=== PATIENT | female | born 1950 | race Caucasian/White ===

== ENCOUNTER 2017-07-05 21:34 | Observation (INO) | payer MEDICARE, MEDICAID ==
[~2017-07-05 21:34] MED LIST: ALBU6.7H INH; BACT800T5 PO; MEDR4PAK PO; VENTAER INH; ZITHTAB PO
[2017-07-06] MEDS ORDERED: IOHEXOL 350 MG/ML 100 ML BTL (for Cath Lab) OTHER ONE (01:12)
[2017-07-06 04:35] VITALS: BP 126/77; PULSE 57; RESP 18; TEMP 98.1; O2SAT 97
[2017-07-06 06:50] VITALS: PULSE 56
[2017-07-06] MEDS ORDERED: ACETAMINOPHEN 500 MG CPLT PO PRN (07:30)
[2017-07-06] MEDS ORDERED: SODIUM CHLORIDE 0.9% FLUSH 10 ML FLUSH IV FLUSH PRN (07:30)
[2017-07-06] MEDS ORDERED: ONDANSETRON HCL 4 MG/2 ML VIAL IV PUSH PRN (07:30)
[2017-07-06] MEDS ORDERED: NITROGLYCERIN 0.4 MG SL 25 TABS/BTL SL PRN (07:30)
[2017-07-06 07:45] VITALS: BP 125/72; PULSE 55; RESP 18; TEMP 98; O2SAT 97
--- NOTE | 2017-07-06 07:45 | HHI.HP ---
HPI Primary Care Physician Unknown Chief Complaint Chest pain History of Present Illness 66 year old female with history of COPD and current smoker presents to ER for further evaluation of chest pain. Onset last evening 7pm. Nonexertional. Reports quick onset of diaphoresis, nausea, substernal chest pain, and x3 episodes of nonbloody emesis. Characterized as waxing and waning sharp pain. No radiation of pain. Duration 1.5-2 hours. No known precipitating or relieving factors. She notified her daughter, daughter took mother's blood pressure, and . Blood pressure reportedly high, therefore took clonidine pill prescribed to her daughter. Continued to experience chest discomfort, therefore called her son to assist her to ER. Currently chest pain free. No recent illness. Review of Systems General: No fatigue,weakness, fever, chills, recent illness, or change in appetite. Has been her general health. HEENT: No RADFORD, no vision changes, no nasal congestion or drainage, no dysphasia CV: As stated above. No current chest pain or pressure. No history of coronary artery disease. No palpitations. RESP: No SOB, cough, wheeze, or recent URI. Known COPD, continues to smoke. GI: No nausea, vomiting, bowel changes, diarrhea, constipation, pain, distention , melena, blood in the stool. No change in appetite, no unintentional weight gain or weight loss : No dysuria, urgency, frequency EXT: No lower leg edema, no paraesthesias MS: No discomfort or change in ROM NEURO: No change in memory, dizziness, difficulty with balance, LOC, motor/ sensory deficits PSYCH: No anxiety, depression, suicidal ideation SKIN: No rashes, no concerning lesions Past Family Social History Allergies: Coded Allergies: No Known Allergies (Verified Allergy, Unknown, 07/06/17) Past Medical History COPD Reported Medications Reported Meds & Active Scripts Active Reported Proventil Hfa 6.7 GM Inh (Albuterol Sulfate) 90 Mcg/Act Aer 2 Puff INH Q4-6H PRN Active Ordered Medications Current Medications Medications (Trade) Dose Ordered Sig/Jade Route Start Time Stop Time Status Last Admin (NS Flush) 2 ml UNSCH PRN IV FLUSH 07/06/17 07:30 (NS Flush) 2 ml BID IV FLUSH 07/06/17 09:00 (Tylenol) 500 mg Q4H PRN PO 07/06/17 07:30 (Zofran Inj) 4 mg Q6H PRN IV PUSH 07/06/17 07:30 (Nitrostat Sl) 0.4 mg Q5M PRN SL 07/06/17 07:30 (Aspirin) 325 mg DAILY PO 07/06/17 09:00 Family History Noncontributory for early onset cardiovascular disease. Social History No known CAD, hypertension, hyperlipidemia, or diabetes. Current smoker. Endorses sedentary lifestyle. 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 Past cardiac testing None Physical Exam Vital Signs Vital Signs Date Time Temp Pulse Resp B/P (MAP) Pulse Ox O2 Delivery O2 Flow Rate FiO2 07/06/17 06:50 56 07/06/17 04:35 98.1 57 18 126/77 (93) 97 Physical Exam GENERAL: Alert WN, WD, NAD, pleasant, obese female who appears older than stated age. HEAD: NC, AT NECK: Supple, no masses, trachea midline CV: RRR, without murmur, rub, gallop, no JVD, S1-S2 no S3-S4. Chest wall nontender with palpation. RESP: Clear lungs throughout bilateral, no crackles, wheeze, rhonchi, symmetrical chest rise, nonlabored, able to speak in full sentences ABD: Soft, NT, ND, no masses, positive bowel tones, round, obese BACK: No CVAT, no scoliosis EXT: Pulses +24, trace bilateral pedal edema MS: Normal tone 4 extremities, nontender, no obvious deformities, full range of motion NEURO: CN II through CN XII grossly intact, motor strength 5/5 PSYCH: A+O 3, pleasant affect, appropriate speech, appropriate mood and affect , insight and judgment SKIN: Normal turgor, normal texture, no lesions, no rashes Laboratory CBC unremarkable, CMP unremarkable, troponin negative, potassium 3.4 Imaging Chest x-ray no acute cardiopulmonary disease. Course EKG First and second EKG normal sinus rhythm, with incomplete right bundle branch block. Third EKG limb lead reversal. Caprini VTE Risk Assessment Caprini VTE Risk Assessment: Mod/High Risk (score >= 2) Caprini Risk Assessment Model Point Value = 1 Point Value = 2 Point Value = 3 Point Value = 5 Age 41-60 Minor surgery BMI > 25 kg/m2 Swollen legs Varicose veins or History of unexplained or recurrent spontaneous Oral contraceptives or hormone replacement Sepsis (< 1 month) Serious lung disease, including pneumonia (< 1 month) Abnormal pulmonary function Acute myocardial infarction Congestive heart failure (< 1 month) History of inflammatory bowel disease Medical patient at bed rest Age 61-74 Arthroscopic surgery Major open surgery (> 45 min) Laparoscopic surgery (> 45 min) Malignancy Confined to bed (> 72 hours) Immobilizing plaster cast Central venous access Age >= 75 History of VTE Family history of VTE Factor V Leiden Prothrombin [id number] Lupus anticoagulant Anticardiolipin antibodies Elevated serum homocysteine Heparin-induced thrombocytopenia Other congenital or acquired thrombophilia Stroke (< 1 month) Elective arthroplasty Hip, pelvis, or leg fracture Acute spinal cord injury (< 1 month) Prophylaxis Regimen Total Risk Factor Score Risk Level Prophylaxis Regimen 0-1 Low Early ambulation 2 Moderate Order ONE of the following: *Sequential Compression Device (SCD) *Heparin 5000 units SQ BID 3-4 Higher Order ONE of the following medications: *Heparin 5000 units SQ TID *Enoxaparin/Lovenox 40 mg SQ daily (WT < 150 kg, CrCl > 30 mL/min) *Enoxaparin/Lovenox 30 mg SQ daily (WT < 150 kg, CrCl > 10-29 mL/min) *Enoxaparin/Lovenox 30 mg SQ BID (WT < 150 kg, CrCl > 30 mL/min) AND/OR *Sequential Compression Device (SCD) 5 or more Highest Order ONE of the following medications: *Heparin 5000 units SQ TID (Preferred with Epidurals) *Enoxaparin/Lovenox 40 mg SQ daily (WT < 150 kg, CrCl > 30 mL/min) *Enoxaparin/Lovenox 30 mg SQ daily (WT < 150 kg, CrCl > 10-29 mL/min) *Enoxaparin/Lovenox 30 mg SQ BID (WT < 150 kg, CrCl > 30 mL/min) AND *Sequential Compression Device (SCD) Assessment and Plan Assessment and Plan #1 Chest pain-admitted to chest pain center. Ruled out with 3 sets of EKGs, cardiac enzymes, and monitored overnight. Repeat 3rd EKG due to limb lead reversal. Seen and evaluated by Dr. Rafael Malone. Proceed with chemical stress test this a.m. If unremarkable, discharged home with follow-up with PCP. Patient agreeable to plan of care. #2 Tobacco use-strongly encouraged and stressed the importance of tobacco cessation. Instructed to quit smoking, especially due to her diagnosis of COPD. Informed of free smoking cessation classes and possible medications that may assist her with her efforts. 1300 Abnormal lexiscan, discussed with Dr. Malone. Admit to casework manager with possible hospitalist consult. Discussed with patient. Ariana Braun Jul 06, 2017 07:45
--- NOTE | 2017-07-06 08:53 | HHI.HP ---
HPI Primary Care Physician Unknown Past Family Social History Allergies: Coded Allergies: No Known Allergies (Verified Allergy, Unknown, 07/06/17) Reported Medications Reported Meds & Active Scripts Active Bactrim DS (Sulfamethoxazole-Trimethoprim) 800-160 Mg Tab 1 Tab PO BID Zithromax Z-Trell (Azithromycin) 250 Mg Dspk 250 Mg PO DIRECTED 500 MG (2 tabs) day 1, then 1 tab days 2-5. Ventolin Hfa 18 GM Inh (Albuterol Sulfate) 90 Mcg/Act Aer 2 Puff INH Q6H PRN Medrol Dosepak (Methylprednisolone) 4 Mg Dspk 4 Mg PO DIRECTED Per Pharmacist direction Reported Proventil Hfa 6.7 GM Inh (Albuterol Sulfate) 90 Mcg/Act Aer 2 Puff INH Q4-6H PRN Active Ordered Medications Current Medications Medications (Trade) Dose Ordered Sig/Jade Route Start Time Stop Time Status Last Admin (NS Flush) 2 ml UNSCH PRN IV FLUSH 07/06/17 07:30 (NS Flush) 2 ml BID IV FLUSH 07/06/17 09:00 07/06/17 08:44 (Tylenol) 500 mg Q4H PRN PO 07/06/17 07:30 (Zofran Inj) 4 mg Q6H PRN IV PUSH 07/06/17 07:30 (Nitrostat Sl) 0.4 mg Q5M PRN SL 07/06/17 07:30 (Aspirin) 325 mg DAILY PO 07/06/17 09:00 07/06/17 08:43 Physical Exam Vital Signs Vital Signs Date Time Temp Pulse Resp B/P (MAP) Pulse Ox O2 Delivery O2 Flow Rate FiO2 07/06/17 07:45 98.0 55 18 125/72 (89) 97 07/06/17 06:50 56 07/06/17 04:35 98.1 57 18 126/77 (93) 97 Laboratory Laboratory Tests Test 07/06/17 04:10 Caprini VTE Risk Assessment Caprini Risk Assessment Model Point Value = 1 Point Value = 2 Point Value = 3 Point Value = 5 Age 41-60 Minor surgery BMI > 25 kg/m2 Swollen legs Varicose veins or History of unexplained or recurrent spontaneous Oral contraceptives or hormone replacement Sepsis (< 1 month) Serious lung disease, including pneumonia (< 1 month) Abnormal pulmonary function Acute myocardial infarction Congestive heart failure (< 1 month) History of inflammatory bowel disease Medical patient at bed rest Age 61-74 Arthroscopic surgery Major open surgery (> 45 min) Laparoscopic surgery (> 45 min) Malignancy Confined to bed (> 72 hours) Immobilizing plaster cast Central venous access Age >= 75 History of VTE Family history of VTE Factor V Leiden Prothrombin [id number] Lupus anticoagulant Anticardiolipin antibodies Elevated serum homocysteine Heparin-induced thrombocytopenia Other congenital or acquired thrombophilia Stroke (< 1 month) Elective arthroplasty Hip, pelvis, or leg fracture Acute spinal cord injury (< 1 month) Prophylaxis Regimen Total Risk Factor Score Risk Level Prophylaxis Regimen 0-1 Low Early ambulation 2 Moderate Order ONE of the following: *Sequential Compression Device (SCD) *Heparin 5000 units SQ BID 3-4 Higher Order ONE of the following medications: *Heparin 5000 units SQ TID *Enoxaparin/Lovenox 40 mg SQ daily (WT < 150 kg, CrCl > 30 mL/min) *Enoxaparin/Lovenox 30 mg SQ daily (WT < 150 kg, CrCl > 10-29 mL/min) *Enoxaparin/Lovenox 30 mg SQ BID (WT < 150 kg, CrCl > 30 mL/min) AND/OR *Sequential Compression Device (SCD) 5 or more Highest Order ONE of the following medications: *Heparin 5000 units SQ TID (Preferred with Epidurals) *Enoxaparin/Lovenox 40 mg SQ daily (WT < 150 kg, CrCl > 30 mL/min) *Enoxaparin/Lovenox 30 mg SQ daily (WT < 150 kg, CrCl > 10-29 mL/min) *Enoxaparin/Lovenox 30 mg SQ BID (WT < 150 kg, CrCl > 30 mL/min) AND *Sequential Compression Device (SCD) Ariana Braun Jul 06, 2017 08:53
[2017-07-06] MEDS ORDERED: SODIUM CHLORIDE 0.9% FLUSH 10 ML FLUSH IV FLUSH SCH (09:00)
[2017-07-06] MEDS ORDERED: ASPIRIN 325 MG TAB PO SCH (09:00)
[2017-07-06] MEDS ORDERED: POTASSIUM CHLORIDE 20 MEQ CONTROLLED RELEASE TAB PO ONE (09:15)
[2017-07-06] MEDS ORDERED: RESP: ALBUTEROL 2.5 MG/3 ML NEB (PRN) NEB (09:15)
[2017-07-06] MEDS ORDERED: REGADENOSON INJ 0.4 MG/5 ML SYR ONE (11:09)
--- NOTE | 2017-07-06 12:25 | RADRPT ---
EXAM DATE/TIME: 07/06/2017 10:44 [place] COMPARISON: No previous studies available for comparison. INDICATIONS : Substernal chest pain with nausea, vomiting, diaphoresis and dyspnea. Angina. DOSE: 25.4 mCi Tc99m Myoview at stress. 8.5 mCi Tc99m Myoview at rest. 0.4 mg Lexiscan STRESS SYMPTOMS: Dyspnea and chest tightness. EJECTION FRACTION: 67% MEDICAL HISTORY : Hypertension. Chronic obstructive pulmonary disease. SURGICAL HISTORY : Tonsillectomy. Tubal ligation. ENCOUNTER: Initial ACUITY: 1 day PAIN SCALE: 5/10 LOCATION: Substernal chest TECHNIQUE: The patient underwent pharmacologic stress with infusion of prescribed dose. Continuous ECG tracing was monitored during stress. Gated SPECT imaging was performed after stress and conventional SPECT i maging was performed at rest. The examination was performed on a SPECT/CT scanner, both attenuation and non-corrected datasets were reviewed. FINDINGS: DISTRIBUTION: The maximum perfused segment at stress is in the inferior wall. PERFUSION STUDY: There is mild decreased perfusion on the stress images seen at the mid upper septal region compared t o the rest images GATED STUDY: There is intact wall motion and thickening without hypokinetic or dyskinetic segments. CONCLUSION: Mild area of suspected ischemia in the upper mid septum. RISK CATEGORY: Intermediate (1-3% Annual Mortality Rate) Gerard Chacon MD on July 06, 2017 at 12:18 Board Certified Radiologist. This report was verified electronically.
--- NOTE | 2017-07-06 12:51 | EKG ---
Date Performed: 07/06/2017 Time Performed: 05:50:25 PTAGE: 66 years EKG: LIMB LEAD REVERSAL RIGHT BUNDLE BRANCH BLOCK ABNORMAL ECG PREVIOUS TRACING : 07/06/2017 00.24 DOCTOR: Rafael Malone Interpretating Date/Time 07/06/2017 12:49:44
--- NOTE | 2017-07-06 12:56 | EKG ---
Date Performed: 07/06/2017 Time Performed: 09:21:17 PTAGE: 66 years EKG: SINUS BRADYCARDIA RIGHT BUNDLE BRANCH BLOCK ABNORMAL ECG PREVIOUS TRACING : 07/06/2017 05.50 DOCTOR: Rafael Malone Interpretating Date/Time 07/06/2017 12:53:25
--- NOTE | 2017-07-06 12:58 | TR ---
Date Performed: 07/06/2017 Time Performed: 11:13:15 DOCTOR: Rafael Malone DRUG LIST: CLINICAL HISTORY: REASON FOR TEST: CHEST PAIN REASON FOR ENDING: OBSERVATION: CONCLUSION: Lexiscan stress test was performed under standard four minute protocol. Radionuclid e was injected one minute prior to ending the test. No electrocardiographic abormalities were present to suggest ischemia. Nuclear imaging and interpretation are pending. COMMENTS:
[2017-07-06] MEDS ORDERED: MIDAZOLAM HCL 2 MG/2 ML VIAL ONE (14:15)
[2017-07-06] MEDS ORDERED: HEPARIN-NS/PF INJ 1,000 ML ONE (14:15)
--- NOTE | 2017-07-06 15:16 | CATHPROC ---
[facility] HIS Report Study Information Study Number Admission Scheduled Start Study Start [id number] Jul 06 2017 1:11AM 07/06/2017 Jul 06 2017 2:18PM [facility] Cardiac Catheterization Admit Source Facility Department Emergency department [facility] - Radio Frequency Engineer Physician and Clinical Staff Initial David Dailey Pest Control Service Sales Agent Jace Guevara RN Recorder Fariba Norris,RT(R) (BS) Scrub Nelsy KhanRT(R) Procedures Performed Procedure Location (Site) Vessel Name Angiogram LV LV Ventricle Coronary Angiograms LCA Left Coronary Coronary Angiograms RCA Right Coronary L Heart Cath Equipment Time Route Rider Supervisor Description Size Mfg Part Number Used/Scraped TRANSDUCER, TRUWAVE [id number] 14:49 [employer] * Used W/STOCKCOCK *[id number] 15:09 [employer] MEDICAL VASCADE, FR5 CLOSURE SYSTEM FR 5 Used *[id number] *[id number] [id number] *[id number] *[id number] 14:49 [employer] PACK, CCL CUSTOM * Used *[id number] 14:49 [employer] PACER PEN, SKIN DUAL W/ RULER * Used *[id number] 14:49 [employer] WIRE, 3MMJ .035 180CM 180CM Used *[id number] PROBE COVER, STERILE [id number] 14:49 [employer] * Used ULTRASOUND W/ GEL *[id number] 14:49 NAMIC MANIFOLD, 4 PORT * Used *[id number] 14:49 NAMIC TUBING, HIGH PRESSURE 48" 48" Used *[id number] 14:49 [employer]COMED OMNIPAQUE, 350 MG, 150ML 150ML [id number] Used 14:57 [employer]ED OMNIPAQUE, 350 MG, 50ML 50ML [id number] Used [id number] 14:49 P[employer] MEDICAL BLANKET,WARM AIR CCL * Used *[id number] 14:49 TERUMO MEDICAL SHEATH, FR5 TERUMO (10CM) FR 5 Used *[id number] History: Allergies Allergy Reaction No Known Allergies History: Risk Factors Family History of Hypertension Dyslipidemia Previous [place] Previous Heart Failure Premature CAD No No No No No Prior Valve Prior PCI Prior CABG Surgery No No No Cerebrovascular Peripheral Artery Chronic Lung On Dialysis Diabetes Disease Disease Disease No No No Yes No History: Symptoms/Diagnosis Selection Items Chest pain History: Stress Tests Stress or Imaging Studies Performed Yes Standard Exercise Stress Test No Stress Echo No Stress Test SPECT Stress Test SPECT Result Stress Test SPECT Ischemia Risk/Extent Yes Positive Intermediate Stress Test CMR No Cardiac CTA Coronary Calcium Score No No History: Other Current Smoker Method Packs a Day Years Used Pack Years Yes Cigarettes 2 44 88 Labs Hgb (g/dl) Hct (%) WBC (l/cumm) Platelets (thousands) 11.60-17.00 35.00-51.00 4.00-11.00 150.00-450.00 12.9 37.4 7.3 218 Glucose (mg/dl) BUN (mg/dl) Creatinine (mg/dl) BUN:Creatinine (1:x) 74.00-106.00 7.00-18.00 0.50-1.30 10.00-20.00 91 12 0.9 13.3 Na (meq/l) K (meq/l) 136.00-145.00 3.50-5.10 145 3.5 INR (PTT:PT) 0.90-1.10 0.9 Troponin I (ng/ml) CPK-MB (ng/ML) 0.02-0.05 0.50-3.60 0.03 Not Drawn Medication Medication Total Dose (Bolus/Oral) Medication Total Dosage/Unit 1% XYLOCAINE 20 mL FENTANYL 50 mcg VERSED 2 mg Medications (Bolus/Oral) Medication Time Given Dosage/Unit Administered By Reason VERSED 07/06/2017 2:49:42 PM 2 mg Jace Guevara 2 mg VERSED given in lab by Jace Guevara RN in Right Antecubital via Peripheral IV. FENTANYL 07/06/2017 2:50:16 PM 50 mcg Jace Guevara 50 mcg FENTANYL given in lab by Jace Guevara RN in Right Antecubital via Peripheral IV. 1% XYLOCAINE 07/06/2017 2:52:16 PM 20 mL David Thorpe 20 mL 1% XYLOCAINE given in lab by David Thorpe in Right Groin via Subcutaneous. Medication (Drip) Medication Time Given Dosage/Unit Concentration/Unit Diluent (ml) Solution IV Solutions 07/06/2017 2:18:43 PM 50 mL (IV) 500 NaCl .9 IV Solutions given in lab by Jace Guevara RN in Right Antecubital via Peripheral IV. Pump/Drip Flow using NaCl .9. Initial Case Assessment Cardiovascular HR Rhythm NIBP Chest Pain 53 reg 169/65 0 Edema Present Skin color Skin None Normal Warm Dry Circulatory - Right Pulses Dorsalis Pedis Femoral 1 1 Scale (0,1,2,3,4,d) Circulatory - Left Pulses Dorsalis Pedis Femoral 2 1 Scale (0,1,2,3,4,d) Circulatory - Lower Extremities Color Lower Right Color Lower Left Normal Normal Neurological State Oriented to time-place- Alert Moves all extremities person Respiration - General Respiration Rate SpO2 (%) (B/min) 8 99 Chronological Log Time Study Chronological Log 14:18:17 Patient arrived via Bed. 14:18:23 Patient Name, D.O.B, / Armband Verified By R.N. 14:18:29 Consent signed by the physician and the patient and verified by the Radio Frequency Engineer staff. 14:18:30 Pre-op and post- op instructions given; patient acknowledges understanding of instructions. 14:18:30 Verbal Stimulation=2 Physical Stimulation=2 Airway=2 Respiration=2 TOTAL=8. (0=absent, 1=li mited, 2=present) 14:18:33 Presedation assessment performed by Radio Frequency Engineer RN. 14:18:36 Patient has been NPO for More than 6Hrs. 14:18:38 Skin Breakdown none per pt 14:18:39 Patient Warmer Placed on the Table. 14:18:41 Blade Prominences Protected 14:18:42 A # 18 IV was noted in the Antecubital (right). Grade = 0 14:18:43 IV Solutions given in lab by Jace Guevara RN in Right Antecubital via Peripheral IV. Pump /Drip Flow using NaCl .9. 14:18:44 History and physical on the chart or being dictated. Assessment: Initial Case, HR=53 BPM, Rhythm=reg, NRPD=377/65 mmhg, Chest Pain=0, Edema=None, Co raisa=Normal, Skin = Warm, Dry Right Pulses: Cedric Ped=1, Femoral=1 Left Pulses: Cedric Ped=2, Femoral=1 14:18:47 Lower Right Extremities: Color=Normal Lower Left Extremities: Color=Normal Neurological: State=Alert, Ox3, DENNY Respiration: Resp=8 B/min, SpO2=99 % 14:28:34 Bilateral groins prepped with 2% chlorhexidine, and draped after a 3 minute waiting time. Vitals capture started with the following parameters, Patient=Adult, Interval=5 min, Initial Pr uluwdj=629 mmHg, 14:31:29 Deflation Rate=5 mmHg, Cuff placed on Left Arm 14:32:28 HR=56 bpm, XMJO=186/65 mmhg, SpO2=98.0 %, Resp=15 B/min, Pain=0, Maria Elena=10, Vera=2 14:34:28 Pressure channel 1 zeroed. 14:35:38 MD paged 14:36:35 Reference ECG taken 14:37:12 HR=56 bpm, KLNW=527/86 mmhg, SpO2=99.0 %, Resp=8 B/min, Pain=0, Maria Elena=10, Vera=2 14:42:11 HR=59 bpm, WYBS=002/85 mmhg, SpO2=98.0 %, Resp=13 B/min, Pain=0, Maria Elena=10, Vera=2 14:46:02 MD arrived 14:47:10 HR=63 bpm, ORZH=632/93 mmhg, SfH6=965.0 %, Resp=21 B/min, Pain=0, Maria Elena=10, Vera=2 14:49:42 2 mg VERSED given in lab by Jace Guevara RN in Right Antecubital via Peripheral IV. 14:50:16 50 mcg FENTANYL given in lab by Jace Guevara RN in Right Antecubital via Peripheral IV. Time Out. Correct patient, correct procedure, correct physician, power injector loaded with con trast with surgical team 14:52:05 present. Time Out Concurred by MD and individual staff in procedure. 14:52:12 HR=58 bpm, EOSV=200/77 mmhg, SpO2=97.0 %, Resp=0 B/min, Pain=0, Maria Elena=10, Vera=2 14:52:15 Case Start 14:52:16 20 mL 1% XYLOCAINE given in lab by David Thorpe in Right Groin via Subcutaneous. 14:53:58 Access site was Right Femoral Artery using ultrasound 14:54:06 A SHEATH, FR5 TERUMO (10CM) FR 5 was advanced into the Fem Art (right) using the Percutaneo us technique. A PIGTAIL ANG. INFINITI CATHETER FR 5 was advanced over a wire. OMNIPAQUE, 350 MG, 150ML 150ML was used 14:54:53 for injections. Recorded Pressure: LV, HR=68, Condition=Condition 1 14:56:10 (Left Ventricle) LV 144/8/15 14:56:26 The LV was injected at 10 cc/sec for a total of 30. OMNIPAQUE, 350 MG, 50ML 50ML used. Recorded Pressure: LV, Ao, HR=63, Condition=Condition 1 14:57:28 (Left Ventricle) LV 110/5/12, (Aorta) Ao 117/60/85 14:57:43 HR=59 bpm, ZCDB=894/73 mmhg, SpO2=98.0 %, Resp=11 B/min, Pain=0, Maria Elena=10, Vera=2 14:57:48 Catheter was removed A JL 4.0 INFINITI CATHETER FR 5 was advanced over a wire. OMNIPAQUE, 350 MG, 150ML 150ML was u sed for 14:58:04 injections. Recorded Pressure: Ao, HR=55, Condition=Condition 1 14:59:00 (Aorta) Ao 141/74/101 14:59:23 The LCA was injected and visualized at various angles. OMNIPAQUE, 350 MG, 150ML 150ML use d. 15:00:54 Catheter was removed A AR MOD INFINITI CATHETER FR 5 was advanced over a wire. OMNIPAQUE, 350 MG, 150ML 150ML was u sed for 15:01:10 injections. 15:02:08 HR=66 bpm, QDGY=726/71 mmhg, SpO2=99.0 %, Resp=23 B/min, Pain=0, Maria Elena=10, Vera=2 15:02:19 The RCA was injected and visualized at various angles. OMNIPAQUE, 350 MG, 150ML 150ML use d. 15:02:40 Catheter was removed 15:03:47 An injection in the Fem Art (right) was made through the SHEATH, FR5 TERUMO (10CM) FR 5. 15:07:13 HR=63 bpm, DQQC=942/75 mmhg, SpO2=99.0 %, Resp=25 B/min, Pain=0, Maria Elena=10, Vera=2 15:08:35 VASCADE, FR5 CLOSURE SYSTEM FR 5 placement in the Fem Art (right) 15:09:56 Case End 15:10:18 Catheter(s) removed without difficulty 15:10:24 No case complications noted. 15:10:27 Bedside Report will be given. 15:10:30 A Left Heart Cath was performed. 15:12:12 HR=58 bpm, OCAJ=942/79 mmhg, YgD7=062.0 %, Resp=11 B/min, Pain=0, Maria Elena=10, Vera=2 15:14:24 Sterile dressing applied to site 15:14:37 Implantable Device card placed in patient's chart. 15:15:14 Vitals capture stopped. 15:18:[facility] - Cont[facility] Media Used In Study Contrast Total Opened (mL) Total Used (mL) Total Wasted (mL) Omnipaque 90 90 0 End Study - Maximum Contrast Load Max Contrast Load (mL) 515.7 End Study - Radiation Exposure Fluoro Time (minutes) 1.1 End Study - Sheaths Sheaths Pulled By Sheath Hold Time (min) Nelsy Khan End Study - Patient Disposition Complications Transferred To Interventional Outcome No Radio Frequency Engineer Holding No attempt made
--- NOTE | 2017-07-06 15:21 | HHI.DCPOC ---
Discharge Care Plan Goals to Promote Your Health * To prevent worsening of your condition and complications * To maintain your health at the optimal level Directions to Meet Your Goals Take your medications as prescribed Follow your dietary instruction Follow activity as directed Keep your appointments as scheduled Take your immunizations and boosters as scheduled If your symptoms worsen call your PCP, if no PCP go to Urgent Care Center or Emergency Room Smoking is Dangerous to Your Health. Avoid second hand smoke Call the 24-hour hour crisis hotline for domestic abuse at Jaky Laird MD Jul 06, 2017 15:21
--- NOTE | 2017-07-06 16:30 | MB ---
cc: LOVE MOREL DATE OF CONSULTATION 07/06/2017 HISTORY OF PRESENT ILLNESS This is a 66-year-old white female with a history of COPD and smoking who presented with substernal chest discomfort at rest, nausea, vomiting and diaphoresis. She was severely hypertensive. She was brought to the emergency room. She underwent an adenosine myocardial perfusion study which showed septal ischemia and was an intermediate risk study. PAST MEDICAL HISTORY COPD. ALLERGIES None. MEDICATIONS 1. Methylprednisolone. 2. Albuterol. 3. Sulfamethoxazole. 4. Trimethoprim. 5. Azithromycin. SOCIAL HISTORY The patient is a smoker. She does not drink alcohol. FAMILY HISTORY Positive for heart disease in her father. REVIEW OF SYSTEMS Otherwise negative. PHYSICAL EXAMINATION VITAL SIGNS: Blood pressure 125/72, pulse 55 and regular. HEENT: Negative. 2+ carotid upstrokes. No bruits. LUNGS: A few rhonchi. HEART: Regular with no murmur, gallop or rub. ABDOMEN: Soft. No bruit. EXTREMITIES: Trace edema. 1-2+ distal pulses. NEUROLOGIC: Grossly nonfocal. EKG EKG was reviewed and showed sinus rhythm and right bundle branch block. LABORATORY Troponin 0.03. DIAGNOSIS 1. Unstable angina. 2. Intermediate risk myocardial perfusion study. 3. COPD. 4. Right bundle branch block. DISPOSITION Ms. Colin will undergo cardiac catheterization and coronary intervention if necessary. The patient understands the risks and benefits, and wishes to proceed. She was strongly encouraged to quit smoking. I recommend to continue aggressive modification of her cardiac risk factors. MD ELIAS Fields/ABHILASH /3:37 PM /4:19 PM GERBER
--- NOTE | 2017-07-07 20:54 | MA ---
cc: LOVE MOREL MD DATE: 07/06/2017 INDICATIONS: Unstable angina. Class III angina, intermediate probability nuclear myocardial perfusion study. PROCEDURE PERFORMED 1. Retrograde left heart catheterization with left ventriculography and selective coronary angiography. 2. Moderate sedation. ACCESS SITE The right femoral artery, using ultrasound guidance. EQUIPMENT USED 5 [place] pigtail catheter, 5 [place] JL4 and AR modified coronary artery catheters. MEDICATIONS Versed IV, Fentanyl IV. CONTRAST Omnipaque 90 cc. COMPLICATIONS None. BLOOD LOSS: Less than 10 cc METHOD OF HEMOSTASIS Vascade closure. RESULTS HEMODYNAMICS Heart rate 61 beats per minute. Left ventricular end-diastolic pressure 5 mmHg. Left ventricle 120/5. Aorta 120/74/101. LEFT VENTRICULOGRAPHY Left ventricular ejection fraction 55%. Wall motion normal. No mitral regurgitation. CORONARY ANGIOGRAPHY The main coronary artery is patent. Left anterior descending artery patent. D1 patent. D2 patent. The left circumflex artery is patent, OM-1 patent. The right coronary artery is a dominant vessel which is patent. PDA is patent. PLV is patent. DIAGNOSIS 1. Patent coronary arteries. 2. Preserved left ventricular systolic function. DISPOSITION Ms. Colin can be reassured about her cardiac status. Her study showed patent coronary arteries and preserved left ventricular systolic function. Her nuclear myocardial perfusion study was falsely abnormal. She can be discharged home. She will follow up with her primary physician after discharge. MD ELIAS Fields/JACKELINE /3:07 PM /7:00 PM GERBER
== END 2017-07-06 17:40 | disposition home or self-care (01) ==
LOC: NEDDLT 07-06 01:01 → NEPFCDU 07-06 01:11 → HCIS 07-06 15:31
PROVIDERS: ADMIT Hospitalist; ATTEND Hospitalist
DX: I20.0 Unstable angina (principal); I45.10 Unspecified right bundle-branch block; J44.9 Chronic obstructive pulmonary disease, unspecified; R11.2 Nausea with vomiting, unspecified; R61 Generalized hyperhidrosis; F17.200 Nicotine dependence, unspecified, uncomplicated
CPT/HCPCS: 71046; 78452; 80053; 83735; 84484; 85025; 85610; 85730; 93005; 93017; 93458; 99285; A9502; C1760; C1769; C1893; G0269; G0378; J1644; J2250; J2785; J3010; Q9967